=== PATIENT | female | born 1990 | race Caucasian/White ===

== ENCOUNTER 2019-10-25 06:27 | Emergency (ER) | payer OTHER ==
[2019-10-25 06:35] VITALS: BP 118/75; PULSE 85; RESP 24; TEMP 97.7
[2019-10-25] MEDS ORDERED: ONDANSETRON 4 MG/2 ML VIAL IVP STA (06:46)
[2019-10-25] MEDS ORDERED: SODIUM CHLORIDE 0.9% 2,000 ML IV STA (06:46)
--- NOTE | 2019-10-25 06:50 | ED ---
General Adult HPI - General Chief complaint: Nausea/Vomiting/Diarrhea Stated complaint: Vomiting, chest pain Time Seen by Provider: 10/25/19 06:36 Source: patient, family, RN notes reviewed Mode of arrival: wheelchair Limitations: no limitations - History of Present Illness Initial comments: This is a 28-year-old female presents emergency Department chief complaint of nausea vomiting, cough. Patient states symptoms started Wednesday after coughing she vomited. Patient that she has not been coughing denies any significant sore throat, ear pain, headache or any current chest pain or shortness breath. Patient states that she is very nauseated she's been driving's sent for him. Patient states she's also developed some diarrhea today. Denies any chance denies any dysuria hematuria denies any localized abdominal pain. - Related Data Previous Rx's Medication Instructions Recorded Ondansetron Odt [Zofran Odt] 4 mg PO Q8HR PRN #10 tab 10/25/19 Allergies Allergy/AdvReac Type Severity Reaction Status Date / Time No Known Allergies Allergy Verified 10/25/19 06:35 Review of Systems ROS Statement: Those systems with pertinent positive or pertinent negative responses have been documented in the HPI. ROS Other: All systems not noted in ROS Statement are negative. Past Medical History Past Medical History: No Reported History History of Any Multi-Drug Resistant Organisms: None Reported Additional Past Surgical History / Comment(s): PDA- open heart Past Psychological History: No Psychological Hx Reported Smoking Status: Never smoker Past Alcohol Use History: Occasional Past Drug Use History: Marijuana General Exam Limitations: no limitations General appearance: alert, in no apparent distress, anxious Head exam: Present: atraumatic, normocephalic, normal inspection Eye exam: Present: normal appearance, PERRL, EOMI. Absent: scleral icterus, conjunctival injection, periorbital swelling ENT exam: Present: normal exam, normal oropharynx, mucous membranes moist Neck exam: Present: normal inspection, full ROM. Absent: tenderness, meningismus, lymphadenopathy Respiratory exam: Present: normal lung sounds bilaterally. Absent: respiratory distress, wheezes, rales, rhonchi, stridor Cardiovascular Exam: Present: regular rate, normal rhythm, normal heart sounds. Absent: systolic murmur, diastolic murmur, rubs, gallop, clicks GI/Abdominal exam: Present: soft, normal bowel sounds. Absent: distended, tenderness, guarding, rebound, rigid Back exam: Absent: CVA tenderness (R), CVA tenderness (L) Neurological exam: Present: alert, oriented X3 Skin exam: Present: warm, dry, intact, normal color. Absent: rash Course Vital Signs 10/25/19 06:31 Temperature 97.7 F Pulse Rate 85 Respiratory 24 Rate Blood Pressure 118/75 O2 Sat by Pulse 100 Oximetry Medical Decision Making - Medical Decision Making [id number] female presented for nausea vomiting diarrhea. Patient states that she did have slight cough and is initially started. Patient was well- hydrated patient's influenza A positive she became moderately dehydrated was hydrated 2 L of fluid, given antiemetics as feel improved. Patient was slightly hypokalemic was given oral potassium replacement. Return parameters discussed. - Lab Data Result diagrams: 10/25/19 06:45 10/25/19 06:45 Lab Results 10/25/19 10/25/19 10/25/19 Range/Units 06:45 06:45 06:58 WBC 10.2 (3.8-10.6) k/uL RBC 4.93 (3.80-5.40) m/uL Hgb 14.2 (11.4-16.0) gm/dL Hct 42.6 (34.0-46.0) % MCV 86.3 (80.0-100.0) fL MCH 28.9 (25.0-35.0) pg MCHC 33.5 (31.0-37.0) g/dL RDW 11.8 (11.5-15.5) % Plt Count 319 (150-450) k/uL Neutrophils % 82 % Lymphocytes % 12 % Monocytes % 3 % Eosinophils % 1 % Basophils % 0 % Neutrophils # 8.3 H (1.3-7.7) k/uL Lymphocytes # 1.3 (1.0-4.8) k/uL Monocytes # 0.3 (0-1.0) k/uL Eosinophils # 0.1 (0-0.7) k/uL Basophils # 0.0 (0-0.2) k/uL Sodium 140 (137-145) mmol/L Potassium 3.0 L (3.5-5.1) mmol/L Chloride 105 (98-107) mmol/L Carbon Dioxide 20 L (22-30) mmol/L Anion Gap 15 mmol/L BUN 7 (7-17) mg/dL Creatinine 0.74 (0.52-1.04) mg/dL Est GFR (CKD-EPI)AfAm >90 (>60 ml/min/1.73 sqM) Est GFR (CKD-EPI)NonAf >90 (>60 ml/min/1.73 sqM) Glucose 169 H (74-99) mg/dL Calcium 9.7 (8.4-10.2) mg/dL Total Bilirubin 0.3 (0.2-1.3) mg/dL AST 32 (14-36) U/L ALT 18 (4-34) U/L Alkaline Phosphatase 99 (38-126) U/L Total Protein 7.8 (6.3-8.2) g/dL Albumin 4.8 (3.5-5.0) g/dL Amylase 75 (30-110) U/L Lipase 245 (23-300) U/L Urine Color Urine Appearance (Clear) Urine pH (5.0-8.0) Ur Specific [place] (1.001-1.035) Urine Protein (Negative) Urine Glucose (UA) (Negative) Urine Ketones (Negative) Urine Blood (Negative) Urine Nitrite (Negative) Urine Bilirubin (Negative) Urine Urobilinogen (<2.0) mg/dL Ur Leukocyte Esterase (Negative) Urine RBC (0-5) /hpf Urine WBC (0-5) /hpf Ur Squamous Epith Cells (0-4) /hpf Urine Bacteria (None) /hpf Hyaline Casts (0-2) /lpf Urine Mucus (None) /hpf Urine HCG, Qual (Not Detectd) Influenza Type A RNA Detected H (Not Detectd) Influenza Type B (PCR) Not Detected (Not Detectd) 10/25/19 10/25/19 Range/Units 07:51 07:51 WBC (3.8-10.6) k/uL RBC (3.80-5.40) m/uL Hgb (11.4-16.0) gm/dL Hct (34.0-46.0) % MCV (80.0-100.0) fL MCH (25.0-35.0) pg MCHC (31.0-37.0) g/dL RDW (11.5-15.5) % Plt Count (150-450) k/uL Neutrophils % % Lymphocytes % % Monocytes % % Eosinophils % % Basophils % % Neutrophils # (1.3-7.7) k/uL Lymphocytes # (1.0-4.8) k/uL Monocytes # (0-1.0) k/uL Eosinophils # (0-0.7) k/uL Basophils # (0-0.2) k/uL Sodium (137-145) mmol/L Potassium (3.5-5.1) mmol/L Chloride (98-107) mmol/L Carbon Dioxide (22-30) mmol/L Anion Gap mmol/L BUN (7-17) mg/dL Creatinine (0.52-1.04) mg/dL Est GFR (CKD-EPI)AfAm (>60 ml/min/1.73 sqM) Est GFR (CKD-EPI)NonAf (>60 ml/min/1.73 sqM) Glucose (74-99) mg/dL Calcium (8.4-10.2) mg/dL Total Bilirubin (0.2-1.3) mg/dL AST (14-36) U/L ALT (4-34) U/L Alkaline Phosphatase (38-126) U/L Total Protein (6.3-8.2) g/dL Albumin (3.5-5.0) g/dL Amylase (30-110) U/L Lipase (23-300) U/L Urine Color Yellow Urine Appearance Cloudy H (Clear) Urine pH 7.0 (5.0-8.0) Ur Specific [place] 1.022 (1.001-1.035) Urine Protein 1+ H (Negative) Urine Glucose (UA) Negative (Negative) Urine Ketones 3+ H (Negative) Urine Blood Moderate H (Negative) Urine Nitrite Negative (Negative) Urine Bilirubin Negative (Negative) Urine Urobilinogen <2.0 (<2.0) mg/dL Ur Leukocyte Esterase Negative (Negative) Urine RBC >182 H (0-5) /hpf Urine WBC 4 (0-5) /hpf Ur Squamous Epith Cells 4 (0-4) /hpf Urine Bacteria Rare H (None) /hpf Hyaline Casts 1 (0-2) /lpf Urine Mucus Few H (None) /hpf Urine HCG, Qual Not Detected (Not Detectd) Influenza Type A RNA (Not Detectd) Influenza Type B (PCR) (Not Detectd) Disposition Clinical Impression: Mild dehydration, Nausea & vomiting, Influenza A, Hypokalemia Disposition: HOME SELF-CARE Condition: Stable Instructions (If sedation given, give patient instructions): Acute Nausea and Vomiting (ED), Influenza (ED) Additional Instructions: Please return to the Emergency Department if symptoms worsen or any other chelsi rns. Prescriptions: Ondansetron Odt [Zofran Odt] 4 mg PO Q8HR PRN #10 tab PRN Reason: Nausea Is patient prescribed a controlled substance at d/c from ED?: No Referrals: None,Stated [REFERRING] - 1-2 days Time of Disposition: 08:54
[2019-10-25 07:00] LABS: Basophils % (A) 0 %; Eosinophils # (A) 0.1 k/uL (0-0.7); Eosinophils % (A) 1 %; HCT 42.6 % (34.0-46.0); HGB 14.2 gm/dL (11.4-16.0); Lymphocytes # (A) 1.3 k/uL (1.0-4.8); Lymphocytes % (A) 12 %; MCH 28.9 pg (25.0-35.0); MCHC 33.5 g/dL (31.0-37.0); MCV 86.3 fL (80.0-100.0); Monocytes # (A) 0.3 k/uL (0-1.0); Monocytes % (A) 3 %; Neutrophils # (A) 8.3 k/uL (1.3-7.7); Neutrophils % (A) 82 %; Platelet Count 319 k/uL (150-450); RBC 4.93 m/uL (3.80-5.40); RDW 11.8 % (11.5-15.5); WBC 10.2 k/uL (3.8-10.6)
[2019-10-25 07:05] LABS: ALT 18 U/L (4-34); AST 32 U/L (14-36); African American GFR (CKD) >90 (>60 ml/min/1.73 sqM); Albumin 4.8 g/dL (3.5-5.0); Alkaline Phosphatase 99 U/L (38-126); Amylase 75 U/L (30-110); Anion Gap 15 mmol/L; Blood Urea Nitrogen 7 mg/dL (7-17); Calcium 9.7 mg/dL (8.4-10.2); Carbon Dioxide 20 mmol/L (22-30); Chloride 105 mmol/L (98-107); Glucose 169 mg/dL (74-99); Non-African American GFR(CKD) >90 (>60 ml/min/1.73 sqM); Sodium 140 mmol/L (137-145); Total Bilirubin 0.3 mg/dL (0.2-1.3); Total Protein 7.8 g/dL (6.3-8.2)
[2019-10-25] MEDS ORDERED: POTASSIUM CHLORIDE ER 20 MEQ TAB.ER PO STA (07:32)
[2019-10-25] MEDS ORDERED: METOCLOPRAMIDE 5 MG/ML 2 ML VIAL IVP STA (07:34)
[2019-10-25] MEDS ORDERED: diphenhydrAMINE 50 MG/ML 1 ML VIAL IVP STA (07:34)
[2019-10-25 08:03] LABS: Appearance,Urine Cloudy (Clear); Bacteria,Urine Rare /hpf; Bilirubin,Urine Negative (Negative); Blood,Urine Moderate (Negative); Color,Urine Yellow; Glucose,Urine (UA) Negative (Negative); Hyaline Casts,Urine 1 /lpf (0-2); Ketones,Urine 3+ (Negative); Leukocyte Esterase,Urine Negative (Negative); Mucus,Urine Few /hpf; Nitrite,Urine Negative (Negative); Protein,Urine 1+ (Negative); RBC,Urine >182 /hpf (0-5); Specific Gravity,Urine 1.022 (1.001-1.035); Squamous Epithelial Cell,Urine 4 /hpf (0-4); Urobilinogen,Urine <2.0 mg/dL (<2.0); WBC,Urine 4 /hpf (0-5)
== END 2019-10-25 09:03 | disposition home or self-care (01) ==
LOC: EC 06:27
DX: J10.1 Influenza due to other identified influenza virus with other respiratory manifestations (principal); E86.0 Dehydration; E87.6 Hypokalemia; R11.2 Nausea with vomiting, unspecified; R19.7 Diarrhea, unspecified; Z87.74 Personal history of (corrected) congenital malformations of heart and circulatory system
CPT/HCPCS: 36415; 80053; 82150; 83690; 85025; 81001; 81025; 87502; 99284; 96374; 96375 ×2; 96361 ×2; J1200; J2765; J2405

== ENCOUNTER 2020-03-06 20:01 | Emergency (ER) | payer OTHER ==
[2020-03-06 20:17] VITALS: BP 121/84; PULSE 81; RESP 16; TEMP 98
[2020-03-06] MEDS ORDERED: SODIUM CHLORIDE 0.9% 1,000 ML IV ONE (20:24)
[2020-03-06] MEDS ORDERED: ONDANSETRON 4 MG/2 ML VIAL IVP STA (20:25)
[2020-03-06] MEDS ORDERED: SODIUM CHLORIDE 0.9% 1,000 ML IV SCH (20:30)
--- NOTE | 2020-03-06 20:43 | ED ---
Nausea/Vomiting/Diarrhea HPI - General Source: patient Mode of arrival: ambulatory Limitations: no limitations <Enid Villalobos - Last Filed: 03/06/20 22:23> <Radha Crawford - Last Filed: 03/07/20 23:46> - General Chief complaint: Nausea/Vomiting/Diarrhea Stated complaint: NVD Time Seen by Provider: 03/06/20 20:23 - History of Present Illness Initial comments: 29-year-old female presents today for chief complaint of an hour and half of vomiting. Patient states that she's been vomiting for the past on half and has had loose stools as well. Patient denies fevers or upper respiratory symptoms. Patient denies loss of taste or smell. Patient denies any conjunctival injection or rashes. Patient denies denies dysuria urgency frequency or headache. Patient states that she has not had anything but a breakfast sandwich this morning. Patient denies abdominal pain. patient has no additional complaints. Upon arrival she appears well, nontoxic. (Enid Villalobos) - Related Data Home Medications Medication Instructions Recorded Confirmed Escitalopram Oxalate [Lexapro] 10 mg PO HS 03/06/20 03/06/20 Unknown Control 1 tab PO HS 03/06/20 03/06/20 Previous Rx's Medication Instructions Recorded Ondansetron Odt [Zofran Odt] 4 mg PO Q8HR PRN 3 Days #9 tab 03/06/20 Allergies Allergy/AdvReac Type Severity Reaction Status Date / Time No Known Allergies Allergy Verified 03/06/20 21:36 Review of Systems ROS Other: All systems not noted in ROS Statement are negative. <Enid Villalobos - Last Filed: 03/06/20 22:23> ROS Other: All systems not noted in ROS Statement are negative. <Radha Crawford - Last Filed: 03/07/20 23:46> ROS Statement: Those systems with pertinent positive or pertinent negative responses have been documented in the HPI. Past Medical History Past Medical History: No Reported History History of Any Multi-Drug Resistant Organisms: None Reported Additional Past Surgical History / Comment(s): PDA- open heart Past Psychological History: No Psychological Hx Reported Past Alcohol Use History: Occasional Past Drug Use History: Marijuana <Enid Villalobos - Last Filed: 03/06/20 22:23> General Exam Limitations: no limitations <Enid Villalobos - Last Filed: 03/06/20 22:23> - General Exam Comments Initial Comments: General: The patient is awake and alert, in no distress Eye: +3 mm pupils are equal, round and reactive to light, extra-ocular movements are intact. No nystagmus. There is normal conjunctiva bilaterally. No signs of icterus. Ears, nose, mouth and throat: There are moist mucous membranes and no oral lesions. Neck: The neck is supple, there is no tenderness or JVD. Cardiovascular: There is a regular rate and rhythm. No murmur, rub or gallop is appreciated. Respiratory: Lungs are clear to auscultation, respirations are non-labored, breath sounds are equal. No wheezes, stridor, rales, or rhonchi. Gastrointestinal: Soft, non-distended, non-tender abdomen without masses or organomegaly noted. There is no rebound or guarding present. Musculoskeletal: Normal ROM, no tenderness. Strength 5/5. Sensation intact. radial pulses equal bilaterally 2+. Neurological: A&O x 3. CN II-XII intact grossly, There are no obvious motor or sensory deficits. Coordination appears grossly intact. Speech is normal. Skin: Skin is warm and dry and no rashes or lesions are noted. Psychiatric: Cooperative, appropriate mood & affect, normal judgment. (Enid Villalobos) Course Vital Signs 03/06/20 20:15 Temperature 98 F Pulse Rate 81 Respiratory 16 Rate Blood Pressure 121/84 O2 Sat by Pulse 100 Oximetry Medical Decision Making <Enid Villalobos - Last Filed: 03/06/20 22:23> <Radha Crawford - Last Filed: 03/07/20 23:46> - Medical Decision Making 29-year-old female presenting for nausea vomiting diarrhea. Ongoing since 7 PM. No food since this AM. Patient has no abdominal pain on exam nor complaint. Give IVF. Ketones in urine. Symptoms resolved. Tolerating oral intake. She'll be discharged with oral antiemetics she is requesting discharge statign she if feeling so much better. Recommend PCP f/u in 1-2 days. Return for persistent symptoms and any development of abdominal pain. Patient case discussed with Dr Diaz patient discharged appearing well. (Enid Villalobos) I was available for consultation in the emergency department. The history and physical exam were done by the midlevel provider. I was consulted for this patients care. I reviewed the case with the midlevel provider and based on their presentation of the patient, I agree with the assessment, medical decision making and plan of care as documented. Chart was dictated using [employer] dictation software. Attempts were made to correct any dictation errors however some typographical errors may persist. Patient was seen during a national state of emergency due to the Covid-19 pandemic. (Radha Crawford) - Lab Data Lab Results 03/06/20 03/06/20 03/06/20 Range/Units 21:10 21:43 21:43 Urine Color Yellow Urine Appearance Clear (Clear) Urine pH 5.5 (5.0-8.0) Ur Specific [place] 1.032 (1.001-1.035) Urine Protein 1+ H (Negative) Urine Glucose (UA) Negative (Negative) Urine Ketones 4+ H (Negative) Urine Blood Trace H (Negative) Urine Nitrite Negative (Negative) Urine Bilirubin Negative (Negative) Urine Urobilinogen 2.0 (<2.0) mg/dL Ur Leukocyte Esterase Negative (Negative) Urine RBC 1 (0-5) /hpf Urine WBC 4 (0-5) /hpf Ur Squamous Epith Cells 1 (0-4) /hpf Urine Mucus Many H (None) /hpf Urine HCG, Qual Not Detected (Not Detectd) Coronavirus (PCR) Not Detected (Not Detected) Disposition Is patient prescribed a controlled substance at d/c from ED?: No Time of Disposition: 21:42 <Enid Villalobos - Last Filed: 03/06/20 22:23> <Radha Crawford - Last Filed: 03/07/20 23:46> Clinical Impression: Nausea & vomiting Disposition: HOME SELF-CARE Condition: Good Instructions (If sedation given, give patient instructions): Acute Nausea and Vomiting (ED) Additional Instructions: Please use medication as discussed. Please follow-up with family doctor in the next 2 days.. Please return to emergency room if the symptoms increase or w orsen or for any other concerns. Prescriptions: Ondansetron Odt [Zofran Odt] 4 mg PO Q8HR PRN 3 Days #9 tab PRN Reason: Nausea Referrals: Omid Bush DO [Primary Care Provider] - 1-2 days
[2020-03-06 21:59] LABS: Appearance,Urine Clear (Clear); Bilirubin,Urine Negative (Negative); Blood,Urine Trace (Negative); Color,Urine Yellow; Glucose,Urine (UA) Negative (Negative); Ketones,Urine 4+ (Negative); Leukocyte Esterase,Urine Negative (Negative); Mucus,Urine Many /hpf; Nitrite,Urine Negative (Negative); PH, Urine 5.5 (5.0-8.0); Protein,Urine 1+ (Negative); RBC,Urine 1 /hpf (0-5); Specific Gravity,Urine 1.032 (1.001-1.035); Squamous Epithelial Cell,Urine 1 /hpf (0-4); WBC,Urine 4 /hpf (0-5)
== END 2020-03-06 22:14 | disposition home or self-care (01) ==
LOC: EC 20:01
DX: R11.2 Nausea with vomiting, unspecified (principal); R19.7 Diarrhea, unspecified; Z20.828 Contact with and (suspected) exposure to other viral communicable diseases; Z79.899 Other long term (current) drug therapy
CPT/HCPCS: 99284; 96374; 96361; 81001; 81025; U0003; J2405

== ENCOUNTER 2020-06-02 05:43 | Emergency (ER) | payer OTHER ==
[2020-06-02 05:49] VITALS: BP 125/67; PULSE 65; RESP 20; TEMP 98.9
[2020-06-02] MEDS ORDERED: ONDANSETRON 4 MG/2 ML VIAL IVP STA (06:01)
[2020-06-02] MEDS ORDERED: SODIUM CHLORIDE 0.9% 1,000 ML IV STA (06:01)
--- NOTE | 2020-06-02 06:18 | ED ---
General Adult HPI - General Chief complaint: Nausea/Vomiting/Diarrhea Stated complaint: Vomiting Source: patient, RN notes reviewed Mode of arrival: ambulatory Limitations: no limitations - History of Present Illness Initial comments: 29-year-old female without any significant past medical history presents to the emergency room for nausea vomiting diarrhea. Patient reports that she went out to dinner last night. Afterwards she started to feel like she had to have a bowel movement. Patient reports that she began to have nausea vomiting diarrhea. States she is not able to keep down fluids at this time. Denies abdominal pain. Denies fevers or chills. Denies bilious or bloody emesis. Denies melena or hematochezia.Patient has no other complaints at this time including shortness of breath, chest pain, abdominal pain, headache, or visual changes. - Related Data Home Medications Medication Instructions Recorded Confirmed Escitalopram Oxalate [Lexapro] 10 mg PO HS 03/06/20 03/06/20 Unknown Control 1 tab PO HS 03/06/20 03/06/20 Previous Rx's Medication Instructions Recorded Ondansetron Odt [Zofran Odt] 4 mg PO Q8HR PRN 3 Days #9 tab 03/06/20 Allergies Allergy/AdvReac Type Severity Reaction Status Date / Time No Known Allergies Allergy Verified 06/02/20 05:49 Review of Systems ROS Statement: Those systems with pertinent positive or pertinent negative responses have been documented in the HPI. ROS Other: All systems not noted in ROS Statement are negative. Past Medical History Past Medical History: No Reported History History of Any Multi-Drug Resistant Organisms: None Reported Additional Past Surgical History / Comment(s): PDA- open heart 2009 Past Psychological History: No Psychological Hx Reported Smoking Status: Never smoker Past Alcohol Use History: Occasional Past Drug Use History: Marijuana General Exam Limitations: no limitations General appearance: alert, in no apparent distress Head exam: Present: atraumatic, normocephalic, normal inspection Eye exam: Present: normal appearance, PERRL, EOMI. Absent: scleral icterus, conjunctival injection, periorbital swelling ENT exam: Present: normal exam, mucous membranes moist Neck exam: Present: normal inspection, full ROM. Absent: tenderness, meningismu s, lymphadenopathy Respiratory exam: Present: normal lung sounds bilaterally. Absent: respiratory distress, wheezes, rales, rhonchi, stridor Cardiovascular Exam: Present: regular rate, normal rhythm, normal heart sounds. Absent: systolic murmur, diastolic murmur, rubs, gallop, clicks GI/Abdominal exam: Present: soft, normal bowel sounds. Absent: distended, tenderness, guarding, rebound, rigid Neurological exam: Present: alert Course Vital Signs 06/02/20 05:45 Temperature 98.9 F Pulse Rate 65 Respiratory 20 Rate Blood Pressure 125/67 O2 Sat by Pulse 98 Oximetry Medical Decision Making - Medical Decision Making Vitals are stable. Patient has had nausea vomiting and diarrhea for about 12 hours. It no active vomiting in the emergency room throughout her stay. CBC does show leukocytosis of 14.6 which is likely reactive due to vomiting. CMP unremarkable. 2+ ketones in urine likely related to dehydration. Patient was given fluids and Zofran. She had significant improvement in symptoms. Patient orally rehydrating in the emergency room. Patient adamantly requesting discharge stating she feels better and wants to go home to sleep. Patient reports she actually has Zofran at home when I offered to give her prescription but she forgot. I discussed following up with her doctor in one to 2 days. I recommended she return if she has abdominal pain or fevers or any other worsening symptoms. - Lab Data Result diagrams: 06/02/20 06:06 06/02/20 06:06 Lab Results 06/02/20 06/02/20 06/02/20 Range/Units 06:06 06:06 06:06 WBC 14.6 H (3.8-10.6) k/uL RBC 4.68 (3.80-5.40) m/uL Hgb 13.8 (11.4-16.0) gm/dL Hct 41.5 (34.0-46.0) % MCV 88.8 (80.0-100.0) fL MCH 29.5 (25.0-35.0) pg MCHC 33.2 (31.0-37.0) g/dL RDW 12.1 (11.5-15.5) % Plt Count 335 (150-450) k/uL Neutrophils % 93 % Lymphocytes % 4 % Monocytes % 2 % Eosinophils % 1 % Basophils % 0 % Neutrophils # 13.6 H (1.3-7.7) k/uL Lymphocytes # 0.6 L (1.0-4.8) k/uL Monocytes # 0.3 (0-1.0) k/uL Eosinophils # 0.1 (0-0.7) k/uL Basophils # 0.0 (0-0.2) k/uL Sodium 142 (137-145) mmol/L Potassium 3.9 (3.5-5.1) mmol/L Chloride 110 H (98-107) mmol/L Carbon Dioxide 20 L (22-30) mmol/L Anion Gap 12 mmol/L BUN 13 (7-17) mg/dL Creatinine 0.83 (0.52-1.04) mg/dL Est GFR (CKD-EPI)AfAm >90 (>60 ml/min/1.73 sqM) Est GFR (CKD-EPI)NonAf >90 (>60 ml/min/1.73 sqM) Glucose 163 H (74-99) mg/dL Calcium 9.9 (8.4-10.2) mg/dL Total Bilirubin 0.8 (0.2-1.3) mg/dL AST 24 (14-36) U/L ALT 16 (4-34) U/L Alkaline Phosphatase 84 (38-126) U/L Total Protein 7.7 (6.3-8.2) g/dL Albumin 4.9 (3.5-5.0) g/dL Lipase 116 (23-300) U/L Urine Color Yellow Urine Appearance Clear (Clear) Urine pH 7.5 (5.0-8.0) Ur Specific [place] 1.033 (1.001-1.035) Urine Protein 1+ H (Negative) Urine Glucose (UA) Negative (Negative) Urine Ketones 2+ H (Negative) Urine Blood Negative (Negative) Urine Nitrite Negative (Negative) Urine Bilirubin Negative (Negative) Urine Urobilinogen <2.0 (<2.0) mg/dL Ur Leukocyte Esterase Negative (Negative) Urine RBC 4 (0-5) /hpf Urine WBC 1 (0-5) /hpf Ur Squamous Epith Cells <1 (0-4) /hpf Urine Mucus Rare H (None) /hpf Urine HCG, Qual (Not Detectd) 06/02/20 Range/Units 06:06 WBC (3.8-10.6) k/uL RBC (3.80-5.40) m/uL Hgb (11.4-16.0) gm/dL Hct (34.0-46.0) % MCV (80.0-100.0) fL MCH (25.0-35.0) pg MCHC (31.0-37.0) g/dL RDW (11.5-15.5) % Plt Count (150-450) k/uL Neutrophils % % Lymphocytes % % Monocytes % % Eosinophils % % Basophils % % Neutrophils # (1.3-7.7) k/uL Lymphocytes # (1.0-4.8) k/uL Monocytes # (0-1.0) k/uL Eosinophils # (0-0.7) k/uL Basophils # (0-0.2) k/uL Sodium (137-145) mmol/L Potassium (3.5-5.1) mmol/L Chloride (98-107) mmol/L Carbon Dioxide (22-30) mmol/L Anion Gap mmol/L BUN (7-17) mg/dL Creatinine (0.52-1.04) mg/dL Est GFR (CKD-EPI)AfAm (>60 ml/min/1.73 sqM) Est GFR (CKD-EPI)NonAf (>60 ml/min/1.73 sqM) Glucose (74-99) mg/dL Calcium (8.4-10.2) mg/dL Total Bilirubin (0.2-1.3) mg/dL AST (14-36) U/L ALT (4-34) U/L Alkaline Phosphatase (38-126) U/L Total Protein (6.3-8.2) g/dL Albumin (3.5-5.0) g/dL Lipase (23-300) U/L Urine Color Urine Appearance (Clear) Urine pH (5.0-8.0) Ur Specific [place] (1.001-1.035) Urine Protein (Negative) Urine Glucose (UA) (Negative) Urine Ketones (Negative) Urine Blood (Negative) Urine Nitrite (Negative) Urine Bilirubin (Negative) Urine Urobilinogen (<2.0) mg/dL Ur Leukocyte Esterase (Negative) Urine RBC (0-5) /hpf Urine WBC (0-5) /hpf Ur Squamous Epith Cells (0-4) /hpf Urine Mucus (None) /hpf Urine HCG, Qual Not Detected (Not Detectd) Disposition Clinical Impression: Nausea, vomiting, and diarrhea Disposition: HOME SELF-CARE Condition: Good Instructions (If sedation given, give patient instructions): Acute Nausea and Vomiting (ED), Acute Diarrhea (ED) Additional Instructions: Take Zofran as needed for nausea. Drink plenty of fluids such as Gatorade. Follow up with primary care in 1-2 days. If you have any worsening symptoms such as abdominal pain or fevers return to the emergency room. Is patient prescribed a controlled substance at d/c from ED?: No Referrals: Omid Bush DO [Primary Care Provider] - 1-2 days Time of Disposition: 06:54
[2020-06-02 06:26] LABS: Basophils % (A) 0 %; Eosinophils # (A) 0.1 k/uL (0-0.7); Eosinophils % (A) 1 %; HCT 41.5 % (34.0-46.0); HGB 13.8 gm/dL (11.4-16.0); Lymphocytes # (A) 0.6 k/uL (1.0-4.8); Lymphocytes % (A) 4 %; MCH 29.5 pg (25.0-35.0); MCHC 33.2 g/dL (31.0-37.0); MCV 88.8 fL (80.0-100.0); Monocytes # (A) 0.3 k/uL (0-1.0); Monocytes % (A) 2 %; Neutrophils # (A) 13.6 k/uL (1.3-7.7); Neutrophils % (A) 93 %; Platelet Count 335 k/uL (150-450); RBC 4.68 m/uL (3.80-5.40); RDW 12.1 % (11.5-15.5); WBC 14.6 k/uL (3.8-10.6)
[2020-06-02 06:27] LABS: Appearance,Urine Clear (Clear); Bilirubin,Urine Negative (Negative); Blood,Urine Negative (Negative); Color,Urine Yellow; Glucose,Urine (UA) Negative (Negative); Ketones,Urine 2+ (Negative); Leukocyte Esterase,Urine Negative (Negative); Mucus,Urine Rare /hpf; Nitrite,Urine Negative (Negative); PH, Urine 7.5 (5.0-8.0); Protein,Urine 1+ (Negative); RBC,Urine 4 /hpf (0-5); Specific Gravity,Urine 1.033 (1.001-1.035); Squamous Epithelial Cell,Urine <1 /hpf (0-4); Urobilinogen,Urine <2.0 mg/dL (<2.0); WBC,Urine 1 /hpf (0-5)
[2020-06-02 06:35] LABS: ALT 16 U/L (4-34); AST 24 U/L (14-36); African American GFR (CKD) >90 (>60 ml/min/1.73 sqM); Albumin 4.9 g/dL (3.5-5.0); Alkaline Phosphatase 84 U/L (38-126); Anion Gap 12 mmol/L; Blood Urea Nitrogen 13 mg/dL (7-17); Calcium 9.9 mg/dL (8.4-10.2); Carbon Dioxide 20 mmol/L (22-30); Chloride 110 mmol/L (98-107); Glucose 163 mg/dL (74-99); Non-African American GFR(CKD) >90 (>60 ml/min/1.73 sqM); Potassium 3.9 mmol/L (3.5-5.1); Sodium 142 mmol/L (137-145); Total Bilirubin 0.8 mg/dL (0.2-1.3); Total Protein 7.7 g/dL (6.3-8.2)
== END 2020-06-02 07:02 | disposition home or self-care (01) ==
LOC: EC 05:43
DX: R11.2 Nausea with vomiting, unspecified (principal); R19.7 Diarrhea, unspecified
CPT/HCPCS: 36415; 80053; 83690; 85025; 81001; 81025; 99284; 96374; 96361; J2405; 96360

== ENCOUNTER 2020-11-06 09:23 | Emergency (ER) | payer OTHER ==
[2020-11-06 09:34] VITALS: TEMP 98
[2020-11-06] MEDS ORDERED: SODIUM CHLORIDE 0.9% 1,000 ML IV STA (09:49)
[2020-11-06] MEDS ORDERED: SODIUM CHLORIDE 0.9% 500 ML 500 ML IV STA (09:49)
[2020-11-06] MEDS ORDERED: ONDANSETRON 4 MG/2 ML VIAL IVP STA (09:49)
--- NOTE | 2020-11-06 09:57 | ED ---
General Adult HPI - General Chief complaint: Anxiety Stated complaint: Nausea,Vomiting Time Seen by Provider: 11/06/20 09:40 Source: patient, RN notes reviewed Mode of arrival: ambulatory Limitations: no limitations - History of Present Illness Initial comments: 29-year-old female presents emergency Department chief complaint dehydration, anxiety. Patient states that she lost her dog over the weekend states that she's been very anxious. Patient states that she has been recently home. She was diagnosed with cold. 2 weeks ago. Patient states that she is very anxious morning states that she was vomiting was concerned. She does not have any signi ficant abdominal pain no fevers chills no chest pain or shortness breath no headache or dizziness. Patient states that she is to have some issues with nausea vomiting but they felt there was related to tenderness use. - Related Data Previous Rx's Medication Instructions Recorded Nitrofurantoin Monohyd/M-Cryst 100 mg PO Q12HR #10 cap 11/06/20 [Macrobid] Ondansetron Odt [Zofran Odt] 4 mg PO Q8HR PRN #10 tab 11/06/20 Allergies Allergy/AdvReac Type Severity Reaction Status Date / Time No Known Allergies Allergy Verified 11/06/20 10:22 Review of Systems ROS Statement: Those systems with pertinent positive or pertinent negative responses have been documented in the HPI. ROS Other: All systems not noted in ROS Statement are negative. Past Medical History Past Medical History: No Reported History History of Any Multi-Drug Resistant Organisms: None Reported Additional Past Surgical History / Comment(s): PDA- open heart 2009 Past Psychological History: No Psychological Hx Reported Smoking Status: Never smoker Past Alcohol Use History: Occasional Past Drug Use History: Marijuana General Exam Limitations: no limitations General appearance: alert, in no apparent distress Head exam: Present: atraumatic, normocephalic, normal inspection Eye exam: Present: normal appearance, PERRL, EOMI. Absent: scleral icterus, conjunctival injection, periorbital swelling ENT exam: Present: normal exam, normal oropharynx, mucous membranes moist Neck exam: Present: normal inspection, full ROM. Absent: tenderness, meningismus, lymphadenopathy Respiratory exam: Present: normal lung sounds bilaterally. Absent: respiratory distress, wheezes, rales, rhonchi, stridor Cardiovascular Exam: Present: regular rate, normal rhythm, normal heart sounds. Absent: systolic murmur, diastolic murmur, rubs, gallop, clicks GI/Abdominal exam: Present: soft, normal bowel sounds. Absent: distended, tenderness, guarding, rebound, rigid Back exam: Absent: CVA tenderness (R), CVA tenderness (L) Neurological exam: Present: alert, oriented X3, CN II-XII intact Skin exam: Present: warm, dry, intact, normal color. Absent: rash Course Vital Signs 11/06/20 09:28 Temperature 98.0 F Pulse Rate 69 Respiratory 18 Rate Blood Pressure 111/82 O2 Sat by Pulse 98 Oximetry Medical Decision Making - Medical Decision Making 29-year-old female presented for nausea vomiting anxiety issues. Patient found be moderately dehydrated was well hydrated in emergency from given antiemetics states she feels greatly improved she has no complaints of anxiety depression or suicidal ideation at this time. Patient does have some urinary symptoms with 14 white cells and urinalysis. Patient will be given antibiotics and discharged in stable condition - Lab Data Result diagrams: 11/06/20 09:57 11/06/20 09:57 Lab Results 11/06/20 11/06/20 11/06/20 Range/Units 09:57 09:57 09:57 WBC 11.1 H (3.8-10.6) k/uL RBC 5.01 (3.80-5.40) m/uL Hgb 14.7 (11.4-16.0) gm/dL Hct 43.5 (34.0-46.0) % MCV 86.8 (80.0-100.0) fL MCH 29.4 (25.0-35.0) pg MCHC 33.9 (31.0-37.0) g/dL RDW 11.9 (11.5-15.5) % Plt Count 362 (150-450) k/uL MPV 7.3 Neutrophils % 81 % Lymphocytes % 13 % Monocytes % 4 % Eosinophils % 1 % Basophils % 0 % Neutrophils # 9.0 H (1.3-7.7) k/uL Lymphocytes # 1.5 (1.0-4.8) k/uL Monocytes # 0.4 (0-1.0) k/uL Eosinophils # 0.1 (0-0.7) k/uL Basophils # 0.1 (0-0.2) k/uL Sodium (137-145) mmol/L Potassium (3.5-5.1) mmol/L Chloride (98-107) mmol/L Carbon Dioxide (22-30) mmol/L Anion Gap mmol/L BUN (7-17) mg/dL Creatinine (0.52-1.04) mg/dL Est GFR (CKD-EPI)AfAm (>60 ml/min/1.73 sqM) Est GFR (CKD-EPI)NonAf (>60 ml/min/1.73 sqM) Glucose (74-99) mg/dL Calcium (8.4-10.2) mg/dL Total Bilirubin (0.2-1.3) mg/dL AST (14-36) U/L ALT (4-34) U/L Alkaline Phosphatase (38-126) U/L Total Protein (6.3-8.2) g/dL Albumin (3.5-5.0) g/dL Lipase (23-300) U/L Urine Color Yellow Urine Appearance Turbid H (Clear) Urine pH 6.0 (5.0-8.0) Ur Specific [place] 1.043 H (1.001-1.035) Urine Protein 1+ H (Negative) Urine Glucose (UA) Negative (Negative) Urine Ketones 3+ H (Negative) Urine Blood Small H (Negative) Urine Nitrite Negative (Negative) Urine Bilirubin 1+ H (Negative) Urine Urobilinogen 2.0 (<2.0) mg/dL Ur Leukocyte Esterase Negative (Negative) Urine WBC 14 H (0-5) /hpf Urine Mucus Many H (None) /hpf Urine HCG, Qual Not Detected (Not Detectd) 11/06/20 Range/Units 09:57 WBC (3.8-10.6) k/uL RBC (3.80-5.40) m/uL Hgb (11.4-16.0) gm/dL Hct (34.0-46.0) % MCV (80.0-100.0) fL MCH (25.0-35.0) pg MCHC (31.0-37.0) g/dL RDW (11.5-15.5) % Plt Count (150-450) k/uL MPV Neutrophils % % Lymphocytes % % Monocytes % % Eosinophils % % Basophils % % Neutrophils # (1.3-7.7) k/uL Lymphocytes # (1.0-4.8) k/uL Monocytes # (0-1.0) k/uL Eosinophils # (0-0.7) k/uL Basophils # (0-0.2) k/uL Sodium 142 (137-145) mmol/L Potassium 3.6 (3.5-5.1) mmol/L Chloride 105 (98-107) mmol/L Carbon Dioxide 26 (22-30) mmol/L Anion Gap 11 mmol/L BUN 16 (7-17) mg/dL Creatinine 0.79 (0.52-1.04) mg/dL Est GFR (CKD-EPI)AfAm >90 (>60 ml/min/1.73 sqM) Est GFR (CKD-EPI)NonAf >90 (>60 ml/min/1.73 sqM) Glucose 109 H (74-99) mg/dL Calcium 10.2 (8.4-10.2) mg/dL Total Bilirubin 0.9 (0.2-1.3) mg/dL AST 26 (14-36) U/L ALT 14 (4-34) U/L Alkaline Phosphatase 90 (38-126) U/L Total Protein 8.6 H (6.3-8.2) g/dL Albumin 5.4 H (3.5-5.0) g/dL Lipase 205 (23-300) U/L Urine Color Urine Appearance (Clear) Urine pH (5.0-8.0) Ur Specific [place] (1.001-1.035) Urine Protein (Negative) Urine Glucose (UA) (Negative) Urine Ketones (Negative) Urine Blood (Negative) Urine Nitrite (Negative) Urine Bilirubin (Negative) Urine Urobilinogen (<2.0) mg/dL Ur Leukocyte Esterase (Negative) Urine WBC (0-5) /hpf Urine Mucus (None) /hpf Urine HCG, Qual (Not Detectd) Disposition Clinical Impression: Acute anxiety, Dehydration, Nausea & vomiting Disposition: HOME SELF-CARE Condition: Stable Instructions (If sedation given, give patient instructions): Acute Nausea and V omiting (ED) Additional Instructions: Please return to the Emergency Department if symptoms worsen or any other concerns. Prescriptions: Nitrofurantoin Monohyd/M-Cryst [Macrobid] 100 mg PO Q12HR #10 cap Ondansetron Odt [Zofran Odt] 4 mg PO Q8HR PRN #10 tab PRN Reason: Nausea Is patient prescribed a controlled substance at d/c from ED?: No Referrals: Omid Bush DO [Primary Care Provider] - 1-2 days Time of Disposition: 10:46
[2020-11-06 10:12] LABS: Basophils # (A) 0.1 k/uL (0-0.2); Basophils % (A) 0 %; Eosinophils # (A) 0.1 k/uL (0-0.7); Eosinophils % (A) 1 %; HCT 43.5 % (34.0-46.0); HGB 14.7 gm/dL (11.4-16.0); Lymphocytes # (A) 1.5 k/uL (1.0-4.8); Lymphocytes % (A) 13 %; MCH 29.4 pg (25.0-35.0); MCHC 33.9 g/dL (31.0-37.0); MCV 86.8 fL (80.0-100.0); Mean Platelet Volume 7.3; Monocytes # (A) 0.4 k/uL (0-1.0); Monocytes % (A) 4 %; Neutrophils % (A) 81 %; Platelet Count 362 k/uL (150-450); RBC 5.01 m/uL (3.80-5.40); RDW 11.9 % (11.5-15.5); WBC 11.1 k/uL (3.8-10.6)
[2020-11-06 10:27] LABS: Appearance,Urine Turbid (Clear); Bilirubin,Urine 1+ (Negative); Blood,Urine Small (Negative); Color,Urine Yellow; Glucose,Urine (UA) Negative (Negative); Ketones,Urine 3+ (Negative); Leukocyte Esterase,Urine Negative (Negative); Mucus,Urine Many /hpf; Nitrite,Urine Negative (Negative); Protein,Urine 1+ (Negative); Specific Gravity,Urine 1.043 (1.001-1.035); WBC,Urine 14 /hpf (0-5)
[2020-11-06 10:30] LABS: ALT 14 U/L (4-34); AST 26 U/L (14-36); African American GFR (CKD) >90 (>60 ml/min/1.73 sqM); Albumin 5.4 g/dL (3.5-5.0); Alkaline Phosphatase 90 U/L (38-126); Anion Gap 11 mmol/L; Blood Urea Nitrogen 16 mg/dL (7-17); Calcium 10.2 mg/dL (8.4-10.2); Carbon Dioxide 26 mmol/L (22-30); Chloride 105 mmol/L (98-107); Glucose 109 mg/dL (74-99); Lipase 205 U/L (23-300); Non-African American GFR(CKD) >90 (>60 ml/min/1.73 sqM); Potassium 3.6 mmol/L (3.5-5.1); Sodium 142 mmol/L (137-145); Total Bilirubin 0.9 mg/dL (0.2-1.3); Total Protein 8.6 g/dL (6.3-8.2)
[2020-11-06] MEDS ORDERED: cefTRIAXone IN SWFI 1,000 MG/10 ML SYRINGE IVP STA (10:44)
[2020-11-06 11:00] VITALS: BP 133/81; PULSE 71; RESP 16
== END 2020-11-06 11:00 | disposition home or self-care (01) ==
LOC: EC 09:23
DX: F41.9 Anxiety disorder, unspecified (principal); E86.0 Dehydration; R11.2 Nausea with vomiting, unspecified; F12.90 Cannabis use, unspecified, uncomplicated
CPT/HCPCS: 36415; 80053; 83690; 85025; 81001; 81025; 87086; 99283; 96374; 96375; 96361; J0696

== ENCOUNTER 2020-12-28 06:17 | Emergency (ER) | payer OTHER ==
[2020-12-28 06:38] VITALS: BP 121/76; PULSE 98; RESP 18; TEMP 98.4
[2020-12-28] MEDS ORDERED: METOCLOPRAMIDE 5 MG/ML 2 ML VIAL IVP STA (06:52)
[2020-12-28] MEDS ORDERED: diphenhydrAMINE 50 MG/ML 1 ML VIAL IVP STA (06:52)
[2020-12-28] MEDS ORDERED: SODIUM CHLORIDE 0.9% 2,000 ML IV STA (06:52)
--- NOTE | 2020-12-28 07:02 | ED ---
General Adult HPI - General Chief complaint: Nausea/Vomiting/Diarrhea Stated complaint: Vomiting Time Seen by Provider: 12/28/20 06:36 Source: patient, RN notes reviewed Mode of arrival: ambulatory Limitations: no limitations - History of Present Illness Initial comments: 30-year-old female presents emergency Department chief complaint of nausea vomiting. Patient states started last night. Patient states that she was started on new medication called hydroxyzine. Patient states that made her feel slightly dizzy. No fevers or chills no abdominal pain no dysuria no hematuria no chance . - Related Data Previous Rx's Medication Instructions Recorded Nitrofurantoin Monohyd/M-Cryst 100 mg PO Q12HR #10 cap 11/06/20 [Macrobid] Ondansetron Odt [Zofran Odt] 4 mg PO Q8HR PRN #10 tab 11/06/20 Ondansetron Odt [Zofran Odt] 4 mg PO Q8HR PRN #10 tab 12/28/20 Allergies Allergy/AdvReac Type Severity Reaction Status Date / Time No Known Allergies Allergy Verified 12/28/20 06:38 Review of Systems ROS Statement: Those systems with pertinent positive or pertinent negative responses have been documented in the HPI. ROS Other: All systems not noted in ROS Statement are negative. Past Medical History Past Medical History: No Reported History History of Any Multi-Drug Resistant Organisms: None Reported Additional Past Surgical History / Comment(s): PDA- open heart 2009 Past Psychological History: Anxiety Smoking Status: Never smoker Past Alcohol Use History: Occasional Past Drug Use History: Marijuana General Exam Limitations: no limitations General appearance: alert, in no apparent distress Head exam: Present: atraumatic, normocephalic, normal inspection Eye exam: Present: normal appearance, PERRL, EOMI. Absent: scleral icterus, conjunctival injection, periorbital swelling ENT exam: Present: normal exam, normal oropharynx, mucous membranes moist Neck exam: Present: normal inspection, full ROM. Absent: tenderness, men ingismus, lymphadenopathy Respiratory exam: Present: normal lung sounds bilaterally. Absent: respiratory distress, wheezes, rales, rhonchi, stridor Cardiovascular Exam: Present: regular rate, normal rhythm, normal heart sounds. Absent: systolic murmur, diastolic murmur, rubs, gallop, clicks GI/Abdominal exam: Present: soft, normal bowel sounds. Absent: distended, tenderness, guarding, rebound, rigid Back exam: Absent: CVA tenderness (R), CVA tenderness (L) Neurological exam: Present: alert Skin exam: Present: warm, dry, intact, normal color. Absent: rash Course Vital Signs 12/28/20 06:33 Temperature 98.4 F Pulse Rate 98 Respiratory 18 Rate Blood Pressure 121/76 O2 Sat by Pulse 97 Oximetry Medical Decision Making - Medical Decision Making 30-year-old female presented for nausea vomiting patient's had recurrent issues with this patient was well hydrated, V of mild sinus dehydration, given antiemetics and nausea resolved. Patient discharged in stable condition. Discussed possibility of marijuana-induced emesis. - Lab Data Result diagrams: 12/28/20 06:52 12/28/20 06:52 Lab Results 12/28/20 12/28/20 12/28/20 Range/Units 06:52 06:52 06:52 WBC 8.6 (3.8-10.6) k/uL RBC 5.00 (3.80-5.40) m/uL Hgb 14.3 (11.4-16.0) gm/dL Hct 42.8 (34.0-46.0) % MCV 85.7 (80.0-100.0) fL MCH 28.6 (25.0-35.0) pg MCHC 33.3 (31.0-37.0) g/dL RDW 12.8 (11.5-15.5) % Plt Count 322 (150-450) k/uL MPV 7.0 Neutrophils % 83 % Lymphocytes % 12 % Monocytes % 4 % Eosinophils % 1 % Basophils % 0 % Neutrophils # 7.1 (1.3-7.7) k/uL Lymphocytes # 1.0 (1.0-4.8) k/uL Monocytes # 0.4 (0-1.0) k/uL Eosinophils # 0.1 (0-0.7) k/uL Basophils # 0.0 (0-0.2) k/uL Sodium (137-145) mmol/L Potassium (3.5-5.1) mmol/L Chloride (98-107) mmol/L Carbon Dioxide (22-30) mmol/L Anion Gap mmol/L BUN (7-17) mg/dL Creatinine (0.52-1.04) mg/dL Est GFR (CKD-EPI)AfAm (>60 ml/min/1.73 sqM) Est GFR (CKD-EPI)NonAf (>60 ml/min/1.73 sqM) Glucose (74-99) mg/dL Calcium (8.4-10.2) mg/dL Total Bilirubin (0.2-1.3) mg/dL AST (14-36) U/L ALT (4-34) U/L Alkaline Phosphatase (38-126) U/L Total Protein (6.3-8.2) g/dL Albumin (3.5-5.0) g/dL Lipase (23-300) U/L Urine Color Yellow Urine Appearance Cloudy H (Clear) Urine pH 5.5 (5.0-8.0) Ur Specific [place] 1.040 H (1.001-1.035) Urine Protein 1+ H (Negative) Urine Glucose (UA) Negative (Negative) Urine Ketones 4+ H (Negative) Urine Blood Negative (Negative) Urine Nitrite Negative (Negative) Urine Bilirubin Negative (Negative) Urine Urobilinogen 2.0 (<2.0) mg/dL Ur Leukocyte Esterase Negative (Negative) Urine RBC 1 (0-5) /hpf Urine WBC 2 (0-5) /hpf Ur Squamous Epith Cells 6 H (0-4) /hpf Amorphous Sediment Rare H (None) /hpf Urine Bacteria Rare H (None) /hpf Urine Mucus Many H (None) /hpf Urine HCG, Qual Not Detected (Not Detectd) 12/28/20 Range/Units 06:52 WBC (3.8-10.6) k/uL RBC (3.80-5.40) m/uL Hgb (11.4-16.0) gm/dL Hct (34.0-46.0) % MCV (80.0-100.0) fL MCH (25.0-35.0) pg MCHC (31.0-37.0) g/dL RDW (11.5-15.5) % Plt Count (150-450) k/uL MPV Neutrophils % % Lymphocytes % % Monocytes % % Eosinophils % % Basophils % % Neutrophils # (1.3-7.7) k/uL Lymphocytes # (1.0-4.8) k/uL Monocytes # (0-1.0) k/uL Eosinophils # (0-0.7) k/uL Basophils # (0-0.2) k/uL Sodium 141 (137-145) mmol/L Potassium 4.2 (3.5-5.1) mmol/L Chloride 107 (98-107) mmol/L Carbon Dioxide 22 (22-30) mmol/L Anion Gap 12 mmol/L BUN 14 (7-17) mg/dL Creatinine 0.81 (0.52-1.04) mg/dL Est GFR (CKD-EPI)AfAm >90 (>60 ml/min/1.73 sqM) Est GFR (CKD-EPI)NonAf >90 (>60 ml/min/1.73 sqM) Glucose 114 H (74-99) mg/dL Calcium 9.8 (8.4-10.2) mg/dL Total Bilirubin 0.8 (0.2-1.3) mg/dL AST 23 (14-36) U/L ALT 14 (4-34) U/L Alkaline Phosphatase 84 (38-126) U/L Total Protein 7.9 (6.3-8.2) g/dL Albumin 5.0 (3.5-5.0) g/dL Lipase 187 (23-300) U/L Urine Color Urine Appearance (Clear) Urine pH (5.0-8.0) Ur Specific [place] (1.001-1.035) Urine Protein (Negative) Urine Glucose (UA) (Negative) Urine Ketones (Negative) Urine Blood (Negative) Urine Nitrite (Negative) Urine Bilirubin (Negative) Urine Urobilinogen (<2.0) mg/dL Ur Leukocyte Esterase (Negative) Urine RBC (0-5) /hpf Urine WBC (0-5) /hpf Ur Squamous Epith Cells (0-4) /hpf Amorphous Sediment (None) /hpf Urine Bacteria (None) /hpf Urine Mucus (None) /hpf Urine HCG, Qual (Not Detectd) Disposition Clinical Impression: Dehydration, Nausea & vomiting Disposition: HOME SELF-CARE Condition: Stable Instructions (If sedation given, give patient instructions): Acute Nausea and Vomiting (ED) Additional Instructions: Please return to the Emergency Department if symptoms worsen or any other concerns. Is patient prescribed a controlled substance at d/c from ED?: No Referrals: Frocillo,Omid, DO [Primary Care Provider] - 1-2 days Time of Disposition: 07:35
[2020-12-28 07:14] LABS: Basophils % (A) 0 %; Eosinophils # (A) 0.1 k/uL (0-0.7); Eosinophils % (A) 1 %; HCT 42.8 % (34.0-46.0); HGB 14.3 gm/dL (11.4-16.0); Lymphocytes % (A) 12 %; MCH 28.6 pg (25.0-35.0); MCHC 33.3 g/dL (31.0-37.0); MCV 85.7 fL (80.0-100.0); Monocytes # (A) 0.4 k/uL (0-1.0); Monocytes % (A) 4 %; Neutrophils # (A) 7.1 k/uL (1.3-7.7); Neutrophils % (A) 83 %; Platelet Count 322 k/uL (150-450); RDW 12.8 % (11.5-15.5); WBC 8.6 k/uL (3.8-10.6)
[2020-12-28 07:16] LABS: Amorphous Sediment,Urine Rare /hpf; Appearance,Urine Cloudy (Clear); Bacteria,Urine Rare /hpf; Bilirubin,Urine Negative (Negative); Blood,Urine Negative (Negative); Color,Urine Yellow; Glucose,Urine (UA) Negative (Negative); Ketones,Urine 4+ (Negative); Leukocyte Esterase,Urine Negative (Negative); Mucus,Urine Many /hpf; Nitrite,Urine Negative (Negative); PH, Urine 5.5 (5.0-8.0); Protein,Urine 1+ (Negative); RBC,Urine 1 /hpf (0-5); Squamous Epithelial Cell,Urine 6 /hpf (0-4); WBC,Urine 2 /hpf (0-5)
[2020-12-28 07:25] LABS: ALT 14 U/L (4-34); AST 23 U/L (14-36); African American GFR (CKD) >90 (>60 ml/min/1.73 sqM); Alkaline Phosphatase 84 U/L (38-126); Anion Gap 12 mmol/L; Blood Urea Nitrogen 14 mg/dL (7-17); Calcium 9.8 mg/dL (8.4-10.2); Carbon Dioxide 22 mmol/L (22-30); Chloride 107 mmol/L (98-107); Glucose 114 mg/dL (74-99); Lipase 187 U/L (23-300); Non-African American GFR(CKD) >90 (>60 ml/min/1.73 sqM); Potassium 4.2 mmol/L (3.5-5.1); Sodium 141 mmol/L (137-145); Total Bilirubin 0.8 mg/dL (0.2-1.3); Total Protein 7.9 g/dL (6.3-8.2)
[2020-12-28] MEDS ORDERED: SODIUM CHLORIDE 0.9% 1,000 ML IV ONE (07:33)
[2020-12-28] MEDS ORDERED: ONDANSETRON 4 MG ODT STARTER PACK 2 TAB BTL PO STA (07:35)
== END 2020-12-28 08:24 | disposition home or self-care (01) ==
LOC: EC 06:17
DX: E86.0 Dehydration (principal); R11.2 Nausea with vomiting, unspecified; R19.7 Diarrhea, unspecified; F41.9 Anxiety disorder, unspecified
CPT/HCPCS: 36415; 80053; 83690; 85025; 81001; 81025; 99284; 96374; 96375; 96361; J1200; J2765; S0119

== ENCOUNTER 2022-03-28 06:49 | Emergency (ER) | payer OTHER ==
[2022-03-28 07:26] VITALS: RESP 18
[2022-03-28] MEDS ORDERED: SODIUM CHLORIDE 0.9% 500 ML 500 ML IV ONE (07:35)
[2022-03-28] MEDS ORDERED: ONDANSETRON 4 MG/2 ML VIAL IVP STA (07:35)
[2022-03-28] MEDS ORDERED: SODIUM CHLORIDE 0.9% 1,000 ML IV ONE (07:35)
--- NOTE | 2022-03-28 07:47 | ED ---
General Adult HPI - General Chief complaint: Nausea/Vomiting/Diarrhea Stated complaint: Vomiting Time Seen by Provider: 03/28/22 07:25 Source: patient, RN notes reviewed, old records reviewed Mode of arrival: ambulatory Limitations: no limitations - History of Present Illness Initial comments: This is a 31-year-old female presents emergency Department complaining that last night she went out and drank without eating first and she woke up vomited and has vomited a second time in the emergency department. Patient states she feels extremely sick and nauseous. Patient states she has no abdominal pain or chest pain difficult breathing she has no fever chills or cough. Patient states her only problem is she believes she is hung over. Patient states this has happened in the past but usually taken a hot shower and getting up and moving helps her out but it did not help today she just seemed to get worse. Patient does not want any blood work done she just like some hydration. Patient states the site of blood will make her more nauseous. Patient denies being - Related Data Previous Rx's Medication Instructions Recorded Nitrofurantoin Monohyd/M-Cryst 100 mg PO Q12HR #10 cap 11/06/20 [Macrobid] Ondansetron Odt [Zofran Odt] 4 mg PO Q8HR PRN #10 tab 11/06/20 Ondansetron Odt [Zofran Odt] 4 mg PO Q8HR PRN #10 tab 12/28/20 Allergies Allergy/AdvReac Type Severity Reaction Status Date / Time No Known Allergies Allergy Verified 03/28/22 07:26 Review of Systems ROS Statement: Those systems with pertinent positive or pertinent negative responses have been documented in the HPI. ROS Other: All systems not noted in ROS Statement are negative. Past Medical History Past Medical History: No Reported History History of Any Multi-Drug Resistant Organisms: None Reported Additional Past Surgical History / Comment(s): PDA- open heart 2009 Past Psychological History: Anxiety Smoking Status: Never smoker Past Alcohol Use History: Occasional Past Drug Use History: Marijuana General Exam - General Exam Comments Initial Comments: GENERAL: Patient is well-developed and well-nourished. Patient is nontoxic and well-hydrated and is in mild distress. ENT: Neck is soft and supple. No significant lymphadenopathy is noted. Oropharynx is clear. Moist mucous membranes. Neck has full range of motion without eliciting any pain. EYES: The sclera were anicteric and conjunctiva were pink and moist. Extraocular movements were intact and pupils were equal round and reactive to light. Eyelids were unremarkable. PULMONARY: Unlabored respirations. Good breath sounds bilaterally. No audible rales rhonchi or wheezing was noted. CARDIOVASCULAR: There is a regular rate and rhythm without any murmurs gallops or rubs. ABDOMEN: Soft and nontender with normal bowel sounds. SKIN: Skin is clear with no lesions or rashes and otherwise unremarkable. NEUROLOGIC: Patient is alert and oriented x3. Cranial nerves II through XII are grossly intact. Motor and sensory are also intact. Normal speech, volume and content. Symmetrical smile. MUSCULOSKELETAL: Normal extremities with adequate strength and full range of motion. LYMPHATICS: No significant lymphadenopathy is noted PSYCHIATRIC: Normal psychiatric evaluation. Limitations: no limitations Course Vital Signs 03/28/22 07:22 Temperature 97.7 F Pulse Rate 112 H Respiratory 18 Rate Blood Pressure 134/87 O2 Sat by Pulse 99 Oximetry Medical Decision Making - Medical Decision Making Patient received Zofran and fluids in the IV as well as Tylenol. Patient stated she felt considerably better after that. Patient was fine to go home at this time. Disposition Clinical Impression: Hangover effect, Acute vomiting Disposition: HOME SELF-CARE Condition: Good Instructions (If sedation given, give patient instructions): Acute Nausea and Vomiting (ED) Is patient prescribed a controlled substance at d/c from ED?: No Referrals: Omid Bush DO [Primary Care Provider] - 1-2 days Time of Disposition: 08:56
[2022-03-28] MEDS: ACETAMINOPHEN TAB 500 MG TAB PO STA ×2 (07:52→09:08)
[2022-03-28] MEDS ORDERED: ONDANSETRON 4 MG ODT STARTER PACK 2 TAB BTL PO STA (08:56)
[2022-03-28 09:11] VITALS: BP 115/70; PULSE 98; TEMP 98.4
== END 2022-03-28 09:11 | disposition home or self-care (01) ==
LOC: EC 06:49
DX: F10.129 Alcohol abuse with intoxication, unspecified (principal); R11.10 Vomiting, unspecified; F41.9 Anxiety disorder, unspecified; F12.90 Cannabis use, unspecified, uncomplicated
CPT/HCPCS: 99283; 96374; 96361; J2405; S0119

== ENCOUNTER → 2022-12-22 | Outpatient (CLI) | payer OTHER ==
[2022-12-23 02:35] LABS: African American GFR (CKD) 124.2 (60.0-200.0); Anion Gap 11.7 mmol/L (10.00-18.00); BUN/Creat Ratio 14.69 Ratio (12.00-20.00); Calcium 9.4 mg/dL (8.7-10.3); Carbon Dioxide 25.7 mmol/L (20.0-27.5); Non-African American GFR(CKD) 107.1 (60.0-200.0); Potassium 3.6 mmol/L (3.5-5.5)
== END | disposition home or self-care (01) ==
LOC: LABWHC1 13:19
PROVIDERS: ATTEND Internal Medicine Cardiovascular Disease
DX: I95.9 Hypotension, unspecified (principal)
CPT/HCPCS: 36415; 80048; 82533; 84443

== ENCOUNTER 2024-08-08 06:13 | Emergency (ER) | payer OTHER ==
[2024-08-08] MEDS: ONDANSETRON ODT 4 MG TAB PO STA (06:51)
--- NOTE | 2024-08-08 06:52 | ED ---
Headache HPI - General Chief Complaint: Headache Stated Complaint: NVD Time Seen by Provider: 08/08/24 06:19 Source: patient, RN notes reviewed Mode of arrival: ambulatory Limitations: no limitations - History of Present Illness Initial Comments: 33-year-old female presents emergency department complaint of head injury. Patient states she struck her head on a stairwell. Patient states she has something hard she felt initially dazed. She states that she has had increasing pain, nausea and vomiting. Patient states she became concerned presents chasidy gency department. She denies any other associated symptoms no fevers or chills no abdominal chest pain no neck pain no extremity weakness. - Related Data Previous Rx's Medication Instructions Recorded Nitrofurantoin Monohyd/M-Cryst 100 mg PO Q12HR #10 cap 11/06/20 [Macrobid] Ondansetron Odt [Zofran Odt] 4 mg PO Q8HR PRN #10 tab 11/06/20 Ondansetron Odt [Zofran Odt] 4 mg PO Q8HR PRN #10 tab 12/28/20 Allergies Allergy/AdvReac Type Severity Reaction Status Date / Time No Known Allergies Allergy Verified 08/08/24 06:19 Review of Systems ROS Statement: Those systems with pertinent positive or pertinent negative responses have been documented in the HPI. ROS Other: All systems not noted in ROS Statement are negative. Past Medical History Past Medical History: No Reported History History of Any Multi-Drug Resistant Organisms: None Reported Additional Past Surgical History / Comment(s): PDA- open heart 2009 Past Psychological History: ADD/ADHD, Anxiety, Depression, PTSD Smoking Status: Never smoker Past Alcohol Use History: Occasional Past Drug Use History: Marijuana General Exam General appearance: alert, in no apparent distress Head exam: Present: atraumatic, normocephalic, normal inspection Eye exam: Present: normal appearance, PERRL, EOMI. Absent: scleral icterus, conjunctival injection, periorbital swelling ENT exam: Present: normal exam, normal oropharynx, mucous membranes moist Neck exam: Present: normal inspection, full ROM. Absent: tenderness, meningismus, lymphadenopathy Respiratory exam: Present: normal lung sounds bilaterally. Absent: respiratory distress, wheezes, rales, rhonchi, stridor Cardiovascular Exam: Present: regular rate, normal rhythm, normal heart sounds. Absent: systolic murmur, diastolic murmur, rubs, gallop, clicks Neurological exam: Present: alert, oriented X3, CN II-XII intact, reflexes normal. Absent: motor sensory deficit Skin exam: Present: warm, dry, intact, normal color. Absent: rash Course Vital Signs 08/08/24 06:15 Temperature 97.7 F Pulse Rate 71 Respiratory 18 Rate Blood Pressure 109/72 O2 Sat by Pulse 99 Oximetry Medical Decision Making - Medical Decision Making Was pt. sent in by a medical professional or institution (, VANESSA, AERONAUTICAL PROJECT ENGINEER, urgent care, hospital, or long term...) When possible be specific @ -No Did you speak to anyone other than the patient for history (EMS, parent, family, police, friend...)? What history was obtained from this source @ -No Did you review nursing and triage notes (agree or disagree)? Why? @ -I reviewed and agree with nursing and triage notes Were old charts reviewed (outside hosp., previous admission, EMS record, old EKG, old radiological studies, urgent care reports/EKG's, long term records)? Report findings @ -No old charts were reviewed Differential Diagnosis (chest pain, altered mental status, abdominal pain women, abdominal pain men, vaginal bleeding, weakness, fever, dyspnea, syncope, headache, dizziness, GI bleed, back pain, seizure, CVA, palpatations, mental health, musculoskeletal)? @ -Closed head injury, intracranial hemorrhage, concussion, skull fracture EKG interpreted by me (3pts min.). @ -None X-rays interpreted by me (1pt min.). @ -None done CT interpreted by me (1pt min.). @ -CT brain showing no acute intracranial hemorrhage, mass effect o U/S interpreted by me (1pt. min.). @ -None done What testing was considered but not performed or refused? (CT, X-rays, U/S, labs)? Why? @ -None What meds were considered but not given or refused? Why? @ -None Did you discuss the management of the patient with other professionals (professionals i.e. VANESSA Israel, AERONAUTICAL PROJECT ENGINEER, lab, RT, psych nurse, clinical social work therapist, director state pharmacy, teacher, armed custom protection officer, classification case manager)? Give summary @ -No Was smoking cessation discussed for >3mins.? @ -No Was critical care preformed (if so, how long)? @ -No Were there social determinants of health that impacted care today? How? (Homeles sness, low income, unemployed, alcoholism, drug addiction, transportation, low edu. Level, literacy, decrease access to med. care, shelter, rehab)? @ -No Was there de-escalation of care discussed even if they declined (Discuss DNR or withdrawal of care, Hospice)? DNR status @ -No What co-morbidities impacted this encounter? (DM, HTN, Smoking, COPD, CAD, Cancer, CVA, ARF, Chemo, Hep., AIDS, mental health diagnosis, sleep apnea, morbid obesity)? @ -None Was patient admitted / discharged? Hospital course, mention meds given and route, prescriptions, significant lab abnormalities, going to OR and other pertinent info. @ -Discharge patient felt improved after Zofran, CT was negative CT was obtained given change in mentation, severe mechanism of injury with associated vomiting. Undiagnosed new problem with uncertain prognosis? @ -No Drug Therapy requiring intensive monitoring for toxicity (Heparin, Nitro, Insulin, Cardizem)? @ -No Were any procedures done? @ -No Diagnosis/symptom? @ -Close head injury Acute, or Chronic, or Acute on Chronic? @ -Acute Uncomplicated (without systemic symptoms) or Complicated (systemic symptoms)? @ -Uncomplicated Side effects of treatment? @ -No Exacerbation, Progression, or Severe Exacerbation? @ -No Poses a threat to life or bodily function? How? (Chest pain, [place], [place], pneumonia, PE, COPD, DKA, ARF, appy, cholecystitis, CVA, Diverticulitis, Homicidal, Suic idal, threat to staff... and all critical care pts) @ -No Disposition Clinical Impression: Headache, Head injury Disposition: HOME SELF-CARE Condition: Stable Instructions (If sedation given, give patient instructions): Head Injury (ED) Additional Instructions: Please return to the Emergency Department if symptoms worsen or any other concerns. Is patient prescribed a controlled substance at d/c from ED?: No Referrals: Leslie Thornton PAC [REFERRING] - 1-2 days Time of Disposition: 07:17
--- NOTE | 2024-08-08 07:11 | CT ---
EXAMINATION TYPE: CT brain wo con DATE OF EXAM: 08/08/2024 7:04 AM COMPARISON: None. CLINICAL INDICATION: Female, 33 years old with history of headache, HEADACHE TECHNIQUE: Brain: Axial CT images of the brain were obtained with coronal and sagittal reformats created and rev iewed. Contrast used: None. Oral contrast used: None. CT DLP: 1145 mGycm, Automated exposure control for dose reduction was used. FINDINGS: Brain: Extra-axial spaces: No abnormal extra-axial fluid collections. Ventricular system: Within normal limits Cerebral parenchyma: No acute intraparenchymal hemorrhage or mass effect. The mendiola-white junction is well differentiated. Cerebellum: Unremarkable. Mass effect: No evidence of midline shift. Intracranial vasculature: unremarkable Soft tissues: Normal. Calvarium/osseous structures: No depressed skull fracture. Paranasal sinuses and mastoid air cells: Mild scattered paranasal sinus disease. Visualized orbits: Orbital contents are intact. IMPRESSION: No acute intracranial process. [facility], , 08/08/2024 7:09 AM
[2024-08-08] MEDS: ONDANSETRON 4 MG ODT STARTER PACK 2 TAB BTL PO STA (07:38)
[2024-08-08 07:45] VITALS: BP 101/78; PULSE 75; RESP 16; TEMP 98.2
== END 2024-08-08 07:45 | disposition home or self-care (01) ==
LOC: EC 06:13
DX: S09.90XA Unspecified injury of head, initial encounter (principal); W22.8XXA Striking against or struck by other objects, initial encounter
CPT/HCPCS: 70450; 99284; S0119

== ENCOUNTER 2024-09-18 11:44 | Emergency (ER) | payer OTHER ==
[2024-09-18 11:55] VITALS: RESP 18; TEMP 98.7
--- NOTE | 2024-09-18 12:21 | ED ---
Female Urogenital HPI - General Chief complaint: Vaginal Bleeding Stated complaint: Vaginal bleeding Time Seen by Provider: 09/18/24 12:17 Source: patient, RN notes reviewed, old records reviewed Mode of arrival: ambulatory Limitations: no limitations - History of Present Illness Initial comments: 33-year-old female presented to the ER for evaluation of hematuria. Patient reports 1 week ago she was experiencing dysuria and was seen at urgent care. Jeremias nava was diagnosed with a UTI and started on Keflex, 2 doses remaining. She also reports she was treated for a yeast infection. Patient reports this morning she noticed blood when wiping after urination. Patient believed this was her menstrual cycle and placed a tampon in her vagina. She went to the gym and upon removing to take a shower she removed her tampon and noticed blood on the tampon string but no blood on inserted material. Patient also reports recent occasional left lower quadrant abdominal discomfort no pain currently. She states when she does have this discomfort it is sharp in nature with no radiation. Patient does admit to improvement of dysuria after antibiotics. Patient reports multiple bumps adjacent to her clitoris and labia majora. She was told at urgent care this may be a Bartholin cyst. Patient has attempted to pop this without relief. She states overnight she has noted progressive increase of satellite lesions to this area. Patient reports no concern of STDs. She denies any fevers, chills, nausea, vomiting, constipation/diarrhea or other complaints. - Related Data Previous Rx's Medication Instructions Recorded Nitrofurantoin Monohyd/M-Cryst 100 mg PO Q12HR #10 cap 11/06/20 [Macrobid] Ondansetron Odt [Zofran Odt] 4 mg PO Q8HR PRN #10 tab 11/06/20 Ondansetron Odt [Zofran Odt] 4 mg PO Q8HR PRN #10 tab 12/28/20 Acyclovir 400 mg PO TID 7 Days #42 cap 09/18/24 Allergies Allergy/AdvReac Type Severity Reaction Status Date / Time No Known Allergies Allergy Verified 09/18/24 11:55 Review of Systems ROS Statement: Those systems with pertinent positive or pertinent negative responses have been documented in the HPI. ROS Other: All systems not noted in ROS Statement are negative. Past Medical History Past Medical History: No Reported History History of Any Multi-Drug Resistant Organisms: None Reported Additional Past Surgical History / Comment(s): PDA- open heart 2009 Past Psychological History: ADD/ADHD, Anxiety, Depression, PTSD Smoking Status: Never smoker Past Alcohol Use History: Occasional Past Drug Use History: Marijuana General Exam Limitations: no limitations General appearance: alert, in no apparent distress Respiratory exam: Present: normal lung sounds bilaterally. Absent: respiratory distress, wheezes, rales, rhonchi, stridor Cardiovascular Exam: Present: regular rate, normal rhythm, normal heart sounds. Absent: systolic murmur, diastolic murmur, rubs, gallop, clicks GI/Abdominal exam: Present: soft, normal bowel sounds External exam: Present: lesions (Multiple erythematous macular lesions on labia majora. These appear consistent with healing HSV) Speculum exam: Present: vaginal bleeding Course Vital Signs 09/18/24 09/18/24 11:49 14:48 Temperature 98.7 F Pulse Rate 76 70 Respiratory 18 18 Rate Blood Pressure 118/73 105/63 O2 Sat by Pulse 100 99 Oximetry - Reevaluation(s) Reevaluation #1: 09/18/24 13:12 Pelvic exam performed and chaperoned by Dianne Kruger RN. Medical Decision Making - Medical Decision Making Was pt. sent in by a medical professional or institution (, PA, CR[employer], urgent care, hospital, or senior living...) When possible be specific @ -Patient sent by urgent care for evaluation of hematuria Did you speak to anyone other than the patient for history (EMS, parent, family, police, friend...)? What history was obtained from this source @ -No Did you review nursing and triage notes (agree or disagree)? Why? @ -I reviewed and agree with nursing and triage notes Were old charts reviewed (outside hosp., previous admission, EMS record, old EKG, old radiological studies, urgent care reports/EKG's, senior living records)? Report findings @ -No old charts were reviewed Differential Diagnosis (chest pain, altered mental status, abdominal pain women, abdominal pain men, vaginal bleeding, weakness, fever, dyspnea, syncope, headache, dizziness, GI bleed, back pain, seizure, CVA, palpatations, mental health, musculoskeletal)? @ -UTI, STD, malignancy, kidney stone,... This list is not meant to be all- inclusive EKG interpreted by me (3pts min.). @ -None done X-rays interpreted by me (1pt min.). @ -None done CT interpreted by me (1pt min.). @ -None done U/S interpreted by me (1pt. min.). @ -None done What testing was considered but not performed or refused? (CT, X-rays, U/S, labs)? Why? @Imaging deferred at this time as bleeding believed to be menstrual in nature and no focal abdominal tenderness. Patient is agreeable to this. What meds were considered but not given or refused? Why? @ -Patient refused prophylactic treatment of STDs. Did you discuss the management of the patient with other professionals (professionals i.e. , PA, CR[employer]ING [employer], lab, RT, psych nurse, social science professor, marketing liaison, teacher, hearing officer, special education case manager)? Give summary @ -No Was smoking cessation discussed for >3mins.? @ -No Was critical care preformed (if so, how long)? @ -No Were there social determinants of health that impacted care today? How? (Homelessness, low income, unemployed, alcoholism, drug addiction, transportation, low edu. Level, literacy, decrease access to med. care, [facility] [facility], rehab)? @ -No Was there de-escalation of care discussed even if they declined (Discuss DNR or withdrawal of care, Hospice)? DNR status @ -No What co-morbidities impacted this encounter? (DM, HTN, Smoking, COPD, CAD, Cancer, CVA, ARF, Chemo, Hep., AIDS, mental health diagnosis, sleep apnea, morbid obesity)? @ -None Was patient admitted / discharged? Hospital course, mention meds given and route , prescriptions, significant lab abnormalities, going to OR and other pertinent info. @ -Discharge. 33-year-old female presented to the ER for evaluation of hematuria. Patient sent by urgent care. Upon examination, patient resting comfortably exam no signs of acute distress. Vital signs within acceptable limits. There is no focal abdominal tenderness on exam. Pelvic exam chaperoned by Dianne Kruger RN and remarkable for multiple healing macular erythematous lesions which appear to be multiple stages of active and healing HSV. Patient will be started on acyclovir for this. Laboratory studies obtained unremarkable. Urinalysis with 38 RBCs and moderate blood. This is believed to be due from vaginal bleeding as there is blood noted in vagina surrounding cervix on pelvic exam. There is no cervical motion tenderness. Urine chlamydia, gonorrhea and trichomonas pending. Patient refused prophylactic treatment of STDs. Bleeding believed to be from vaginal source. Patient does state it may be her menstrual cycle as she is due to start any day. Imaging deferred at this time as there is no focal abdominal tenderness but stable laboratory studies. Patient is agreeable to this. Advised her to follow-up closely with PCP and [facility]OOKER for reevaluation. Strict return parameters discussed. Patient discharged stable condition. Patient released process and agree with care plan. Case discussed with the attending, Dr. Villafana. Undiagnosed new problem with uncertain prognosis? @ -No Drug Therapy requiring intensive monitoring for toxicity (Heparin, Nitro, Insulin, Cardizem)? @ -No Were any procedures done? @ -No Diagnosis/symptom? @ -Vaginal bleeding/HSV Acute, or Chronic, or Acute on Chronic? @ -Acute Uncomplicated (without systemic symptoms) or Complicated (systemic symptoms)? @ -Uncomplicated Side effects of treatment? @ -No Exacerbation, Progression, or Severe Exacerbation? @ -No Poses a threat to life or bodily function? How? (Chest pain, USA, [place], pneumonia, PE, COPD, DKA, ARF, appy, cholecystitis, CVA, Diverticulitis, Homicidal, Suicidal, threat to staff... and all critical care pts) @ -Yes, untreated STDs can lead to infertility. - Lab Data Result diagrams: 09/18/24 12:20 09/18/24 12:20 Lab Results 09/18/24 09/18/24 09/18/24 Range/Units 12:20 12:20 12:20 WBC 9.7 (3.8-10.6) k/uL RBC 4.52 (3.80-5.40) m/uL Hgb 13.4 (11.4-16.0) gm/dL Hct 40.7 (34.0-46.0) % MCV 90.0 (80.0-100.0) fL MCH 29.7 (25.0-35.0) pg MCHC 33.0 (31.0-37.0) g/dL RDW 12.1 (11.5-15.5) % Plt Count 280 (150-450) k/uL MPV 7.1 Neutrophils % 69 % Lymphocytes % 20 % Monocytes % 5 % Eosinophils % 2 % Basophils % 1 % Neutrophils # 6.7 (1.3-7.7) k/uL Lymphocytes # 2.0 (1.0-4.8) k/uL Monocytes # 0.5 (0-1.0) k/uL Eosinophils # 0.2 (0-0.7) k/uL Basophils # 0.1 (0-0.2) k/uL Sodium 137 (137-145) mmol/L Potassium 3.9 (3.5-5.1) mmol/L Chloride 100 (98-107) mmol/L Carbon Dioxide 29 (22-30) mmol/L Anion Gap 8 mmol/L BUN 11 (7-17) mg/dL Creatinine 0.73 (0.52-1.04) mg/dL Est GFR (CKD-EPI)AfAm >90 (>60 ml/min/1.73 sqM) Est GFR (CKD-EPI)NonAf >90 (>60 ml/min/1.73 sqM) Glucose 91 (74-99) mg/dL Plasma Lactic Acid Eusebio (0.7-2.0) mmol/L Calcium 9.6 (8.4-10.2) mg/dL Total Bilirubin 0.3 (0.2-1.3) mg/dL AST 59 H (14-36) U/L ALT 31 (4-34) U/L Alkaline Phosphatase 82 (38-126) U/L Total Protein 7.3 (6.3-8.2) g/dL Albumin 4.5 (3.5-5.0) g/dL HCG, Qual Not Detected Urine Color Light Yellow Urine Appearance Cloudy H (Clear) Urine pH 8.0 (5.0-8.0) Ur Specific [place] 1.025 (1.001-1.035) Urine Protein Negative (Negative) Urine Glucose (UA) Negative (Negative) Urine Ketones Negative (Negative) Urine Blood Moderate H (Negative) Urine Nitrite Negative (Negative) Urine Bilirubin Negative (Negative) Urine Urobilinogen <2.0 (<2.0) mg/dL Ur Leukocyte Esterase Negative (Negative) Urine RBC 38 H (0-5) /hpf Urine WBC 3 (0-5) /hpf Ur Squamous Epith Cells <1 (0-4) /hpf Urine Mucus Rare H (None) /hpf Chlamydia DNA (PCR) (Negative) N.gonorrhoeae DNA Probe (Negative) Miscellaneous Test Misc Test Result 09/18/24 09/18/24 09/18/24 Range/Units 12:20 12:20 12:20 WBC (3.8-10.6) k/uL RBC (3.80-5.40) m/uL Hgb (11.4-16.0) gm/dL Hct (34.0-46.0) % MCV (80.0-100.0) fL MCH (25.0-35.0) pg MCHC (31.0-37.0) g/dL RDW (11.5-15.5) % Plt Count (150-450) k/uL MPV Neutrophils % % Lymphocytes % % Monocytes % % Eosinophils % % Basophils % % Neutrophils # (1.3-7.7) k/uL Lymphocytes # (1.0-4.8) k/uL Monocytes # (0-1.0) k/uL Eosinophils # (0-0.7) k/uL Basophils # (0-0.2) k/uL Sodium (137-145) mmol/L Potassium (3.5-5.1) mmol/L Chloride (98-107) mmol/L Carbon Dioxide (22-30) mmol/L Anion Gap mmol/L BUN (7-17) mg/dL Creatinine (0.52-1.04) mg/dL Est GFR (CKD-EPI)AfAm (>60 ml/min/1.73 sqM) Est GFR (CKD-EPI)NonAf (>60 ml/min/1.73 sqM) Glucose (74-99) mg/dL Plasma Lactic Acid Eusebio 0.8 (0.7-2.0) mmol/L Calcium (8.4-10.2) mg/dL Total Bilirubin (0.2-1.3) mg/dL AST (14-36) U/L ALT (4-34) U/L Alkaline Phosphatase (38-126) U/L Total Protein (6.3-8.2) g/dL Albumin (3.5-5.0) g/dL HCG, Qual Urine Color Urine Appearance (Clear) Urine pH (5.0-8.0) Ur Specific [place] (1.001-1.035) Urine Protein (Negative) Urine Glucose (UA) (Negative) Urine Ketones (Negative) Urine Blood (Negative) Urine Nitrite (Negative) Urine Bilirubin (Negative) Urine Urobilinogen (<2.0) mg/dL Ur Leukocyte Esterase (Negative) Urine RBC (0-5) /hpf Urine WBC (0-5) /hpf Ur Squamous Epith Cells (0-4) /hpf Urine Mucus (None) /hpf Chlamydia DNA (PCR) Negative (Negative) N.gonorrhoeae DNA Probe Negative (Negative) Miscellaneous Test Trichomonas Misc Test Result See Comment Disposition Clinical Impression: Vaginal bleeding, Herpes simplex infection Disposition: HOME SELF-CARE Condition: Stable Instructions (If sedation given, give patient instructions): Genital Herpes Simplex (ED) Additional Instructions: Complete full course of acyclovir. Follow-up with PCP. Return to the ER for any new or worsening concerns. Prescriptions: Acyclovir 400 mg PO TID 7 Days #42 cap Is patient prescribed a controlled substance at d/c from ED?: No Referrals: None,Stated [Primary Care Provider] - 1-2 days Forms: Area PCPs Time of Disposition: 14:43
[2024-09-18 12:38] LABS: Basophils # (A) 0.1 k/uL (0-0.2); Basophils % (A) 1 %; Eosinophils # (A) 0.2 k/uL (0-0.7); Eosinophils % (A) 2 %; HCT 40.7 % (34.0-46.0); HGB 13.4 gm/dL (11.4-16.0); Lymphocytes % (A) 20 %; MCH 29.7 pg (25.0-35.0); Mean Platelet Volume 7.1; Monocytes # (A) 0.5 k/uL (0-1.0); Monocytes % (A) 5 %; Neutrophils # (A) 6.7 k/uL (1.3-7.7); Neutrophils % (A) 69 %; Platelet Count 280 k/uL (150-450); RBC 4.52 m/uL (3.80-5.40); RDW 12.1 % (11.5-15.5); WBC 9.7 k/uL (3.8-10.6)
[2024-09-18 13:01] LABS: ALT 31 U/L (4-34); AST 59 U/L (14-36); African American GFR (CKD) >90 (>60 ml/min/1.73 sqM); Albumin 4.5 g/dL (3.5-5.0); Alkaline Phosphatase 82 U/L (38-126); Anion Gap 8 mmol/L; Blood Urea Nitrogen 11 mg/dL (7-17); Calcium 9.6 mg/dL (8.4-10.2); Carbon Dioxide 29 mmol/L (22-30); Chloride 100 mmol/L (98-107); Glucose 91 mg/dL (74-99); Non-African American GFR(CKD) >90 (>60 ml/min/1.73 sqM); Potassium 3.9 mmol/L (3.5-5.1); Sodium 137 mmol/L (137-145); Total Bilirubin 0.3 mg/dL (0.2-1.3); Total Protein 7.3 g/dL (6.3-8.2)
[2024-09-18 13:44] LABS: HCG,Qualitative Serum Not Detected
[2024-09-18 14:16] LABS: Appearance,Urine Cloudy (Clear); Bilirubin,Urine Negative (Negative); Blood,Urine Moderate (Negative); Color,Urine Light Yellow; Glucose,Urine (UA) Negative (Negative); Ketones,Urine Negative (Negative); Leukocyte Esterase,Urine Negative (Negative); Mucus,Urine Rare /hpf; Nitrite,Urine Negative (Negative); Protein,Urine Negative (Negative); RBC,Urine 38 /hpf (0-5); Specific Gravity,Urine 1.025 (1.001-1.035); Squamous Epithelial Cell,Urine <1 /hpf (0-4); Urobilinogen,Urine <2.0 mg/dL (<2.0); WBC,Urine 3 /hpf (0-5)
[2024-09-18 14:49] VITALS: BP 105/63; PULSE 70
[2024-09-19 12:30] LABS: N. gonorrhoeae,PCR Negative (Negative)
[2024-09-19 12:35] LABS: C. trachomatis,PCR Negative (Negative)
== END 2024-09-18 14:54 | disposition home or self-care (01) ==
LOC: EC 11:44
DX: N93.9 Abnormal uterine and vaginal bleeding, unspecified (principal); B00.9 Herpesviral infection, unspecified
CPT/HCPCS: 36415; 80053; 81001; 83605; 84703; 85025; 87491; 87591; 87661; 99284